=== PATIENT | male | born 1975 ===

== ENCOUNTER 2018-05-14 17:39 | Emergency (ER) | payer SELFPAY ==
[2018-05-14 17:48] VITALS: BP 126/78; PULSE 79; RESP 16; TEMP 97.9; O2SAT 96
--- NOTE | 2018-05-14 18:38 | ED PDOC ---
HPI: Skin/Bite Injury Time Seen by Provider: 05/14/18 17:48 Chief Complaint (Nursing): Abnormal Skin Integrity Chief Complaint (Provider): Hives History Per: Patient History/Exam Limitations: no limitations Onset/Duration Of Symptoms: Days (since yesterday) Current Symptoms Are (Timing): Still Present Additional Complaint(s): 43-year-old male, with a PMHx of diabetes, presents to ED with for evaluation of a rash all over his body, onset last night. Patient states rash is itchy, but not painful. Patient reports he did not take any medications for his symptoms prior to arrival. Patient denies having hx of allergic reactions or any new exposures. Otherwise: (-) cough (-) abdominal pain (-) nausea (-) vomiting (-) fever (-) chills (-) facial swelling (-) chest pain (-) SOB. PMD: [facility] Past Medical History Reviewed: Historical Data, Nursing Documentation, Vital Signs Vital Signs: Last Vital Signs Temp 97.9 F 05/14/18 17:46 Pulse 79 05/14/18 17:46 Resp 16 05/14/18 17:46 BP 126/78 05/14/18 17:46 Pulse Ox 96 05/14/18 19:36 - Medical History PMH: Diabetes, HTN, Hypercholesterolemia - Surgical History Surgical History: No Surg Hx - Family History Family History: States: Unknown Family Hx - Social History Current smoker - smoking cessation education provided: Yes ("once a week" ) Alcohol: Social Drugs: Denies - Home Medications Home Medications: Ambulatory Orders Medication Instructions Recorded Metformin 500 mg PO 09/26/13 Glimepiride [Glimepiride] 1 mg PO DAILY 05/16/15 Lisinopril [Prinivil] 2.5 mg PO DAILY 05/16/15 Lovastatin [Mevacor] 40 mg PO DAILY 05/16/15 Metformin Hydrochloride [Metformin] 850 mg PO BID 05/16/15 Ondansetron [Zofran] 4 mg PO Q6H PRN #10 tab 05/16/15 Ranitidine HCl [Zantac 150] 150 mg PO BID #20 tab 05/16/15 traMADol [Ultram] 25 mg PO Q4 PRN #15 tab 05/16/15 DiphenhydrAMINE [Benadryl] 50 mg PO Q6 PRN #28 cap 05/14/18 Famotidine [Pepcid] 40 mg PO DAILY #5 tablet 05/14/18 Prednisone [Deltasone] 40 mg PO DAILY #10 tablet 05/14/18 - Allergies Allergies/Adverse Reactions: Allergies Allergy/AdvReac Type Severity Reaction Status Date / Time No Known Allergies Allergy Verified 05/14/18 17:46 Review of Systems ROS Statement: Except As Marked, All Systems Reviewed And Found Negative Respiratory: Negative for: Shortness of Breath Gastrointestinal: Negative for: Vomiting Skin: Positive for: Rash Physical Exam - Reviewed Nursing Documentation Reviewed: Yes Vital Signs Reviewed: Yes - Physical Exam Comments: GENERAL APPEARANCE: Patient is awake, alert, oriented x 3, in no acute distress SKIN: (+) Scattered Hives, Otherwise (-) excoriations, (-) drainage, (-) crusting HENT: (-) conjunctival injection, (-) chemosis. Oropharynx: clear (-) tongue or lip swelling, (-) tonsillar exudates, (-) erythema. Airway: patent (-) stridor, (-) hoarseness. Mucous membranes moist. Nares: Patent (-) rhinorrhea. (-) Facial swelling NECK: Supple, FROM (-) lymphadenopathy, (-) tenderness. CARDIOVASCULAR: Normal rate and rhythm. (-) murmur, (-) gallop. CHEST: (-) rales, (-) wheezing, (-) dyspnea, (-) stridor. Breath sounds equal bilaterally. Speaking in full sentences, respirations even and nonlabored. ABDOMEN: Soft. (-) tenderness, (-) distention, (-) guarding NEURO: Mental status as above. Gait steady, speech clear. (-) focal deficit (-) facial asymmetry - ECG O2 Sat by Pulse Oximetry: 96 (RA) Pulse Ox Interpretation: Normal Medical Decision Making Medical Decision Makin-year-old male with allergic reaction, urticaria Plan: - Benadryl 50 mg PO (Patient is not driving home) - Pepcid 40 mg PO - PredniSONE Tab 60mg PO - Re-evaluation 1929 On re-evaluation, patient reports improvement of symptoms. On exam, patient remains AAOx3, in no acute distress. Neck is supple, lungs CTA, cardiac RRR, abdomen is soft and non-tender, neuro exam shows no focal findings. VSS, stable for discharge. Diagnostic results d/w the patient in great detail. Dx of allergic reaction, urticaria d/w the patient. Based on history, exam and diagnostic results plan will be for discharge and outpatient follow up. Advised to follow up with primary care physician/clinic in 1-2 days without fail. Advised to take medication as prescribed. Return to the emergency room at any time for any new or worsening symptoms. Patient states he fully agrees with and understands discharge instructions. States that he agrees with the plan and disposition. Verbalized and repeated discharge instructions and plan. I have given the patient opportunity to ask any additional questions. Scribe Attestation: Documented by Leonard Tolbert, acting as a scribe for Seda Rodriguez PA-C. Provider Scribe Attestation: All medical record entries made by the Scribe were at my direction and personally dictated by me. I have reviewed the chart and agree that the record accurately reflects my personal performance of the history, physical exam, medical decision making, and the department course for this patient. I have also personally directed, reviewed, and agree with the discharge instructions and disposition. Disposition - Clinical Impression Clinical Impression: Urticaria, Allergic reaction - Patient ED Disposition Is Patient to be Admitted: No Counseled Patient/Family Regarding: Studies Performed, Diagnosis, Need For Followup, Rx Given - Disposition Referrals: [facility] [employer] [facility] [Outside] Disposition: Routine/Home Disposition Time: 19:33 Condition: STABLE Additional Instructions: FOLLOW UP WITH PMD/CLINIC IN 1-2 DAYS WITHOUT FAIL. RETURN TO ED WITH ANY NEW OR WORSENING SYMPTOMS. TAKE MEDICATION PRESCRIBED FOR SYMPTOMS. Prescriptions: DiphenhydrAMINE [Benadryl] 50 mg PO Q6 PRN #28 cap PRN Reason: Allergy Symptoms Famotidine [Pepcid] 40 mg PO DAILY #5 tablet Prednisone [Deltasone] 40 mg PO DAILY #10 tablet Instructions: Hives, Allergy Skin Testing Forms: [employer] (Chinese) Print Language: LAO - LOUISE Present On Arrival: Soniya
== END 2018-05-14 19:40 | disposition home or self-care (01) ==
LOC: H.ER 17:39
DX: L50.0 Allergic urticaria (principal); T78.40XA Allergy, unspecified, initial encounter; E11.9 Type 2 diabetes mellitus without complications; Z79.84 Long term (current) use of oral hypoglycemic drugs; E78.00 Pure hypercholesterolemia, unspecified; I10 Essential (primary) hypertension